=== PATIENT | female | born 1990 | race Caucasian/White ===

== ENCOUNTER 2016-11-09 13:31 | Emergency (ER) | payer MEDICAID, OTHER ==
[2016-11-09 13:42] VITALS: BP 140/88; TEMP 98; O2SAT 99
[2016-11-09] MEDS ORDERED: predniSONE 20 MG TAB PO ONE (13:45)
[2016-11-09] MEDS ORDERED: KETOROLAC TROMETHAMINE INJ 30 MG/ML VIAL IM ONE (13:46)
[2016-11-09] MEDS ORDERED: HYDROcodone 5MG/APAP 325MG 1 EA TAB PO ONE (13:46)
--- NOTE | 2016-11-09 14:43 | ED.PDOC ---
History of Present Illness - General Chief Complaint: Headache Stated Complaint: headache for two days, nausea Time Seen by Provider: 11/09/16 13:33 Source: patient Exam Limitations: no limitations - History of Present Illness Initial Comments: the patient is a 26-year-old female presenting to the emergency room secondary to headache that she's had for 24-48 hours. Headache is generalized and nonfocal. The onset was gradual. No syncope or near syncope. She has had a mild runny nose and a mild sore throat. Mild increased pressure in her ears. No chest pain or cough. No syncope. No rash. No nuchal rigidity. She does have kids that and had a URI recently. Timing/Duration: 24 hours Severity: moderate Improving Factors: nothing Worsening Factors: nothing Associated Symptoms: malaise Allergies/Adverse Reactions: Allergies Loratadine Allergy (Verified 11/09/16 13:38) Anaphylaxis Home Medications: Ambulatory Orders Levonorgestrel (Iud) [Mirena] 20 mcg IU DAILY 12/21/15 Review of Systems - Review of Systems Constitutional: States: malaise EENTM: States: nose congestion, throat pain Respiratory: States: no symptoms reported Cardiology: States: no symptoms reported Gastrointestinal/Abdominal: States: no symptoms reported Genitourinary: States: no symptoms reported Musculoskeletal: States: no symptoms reported Skin: States: no symptoms reported Neurological: States: headache Endocrine: States: no symptoms reported All other Systems: No Change from Baseline Past Medical History (General) - Patient Medical History Hx Seizures: No Hx Stroke: No Hx Dementia: No Hx Asthma: Yes Hx of COPD: No Hx Cardiac Disorders: No Hx Congestive Heart Failure: No Hx Pacemaker: No Hx Hypertension: No Hx Thyroid Disease: No Hx Diabetes: No Hx Gastroesophageal Reflux: No Hx Renal Disease: No Hx Cancer: No Hx of HIV: No Hx Hepatitis C: No Hx MRSA: No Surgical History: no surgical history - Vaccination History Hx Tetanus, Diphtheria Vaccination: No Hx Influenza Vaccination: No Hx Pneumococcal Vaccination: No Immunizations Up to Date: No - Social History Hx Tobacco Use: No Hx Chewing Tobacco Use: No Hx Alcohol Use: No Hx Substance Use: No Hx Substance Use Treatment: No Hx Depression: No Feels Threatened In Home Enviroment: No Feels Threatened In a Relationship: No Hx Physical Abuse: No Hx Emotional Abuse: No Hx Suspected Abuse: No - Female History Hx Last Menstrual Period: 09/11/14 Patient : No Expected Date of Delivery:: 06/04/15 Family Medical History - Family History Mother Family History: No Known Living Status: Still Living Hx Family Cancer: Yes - skin cancer Paternal Living Status: Still Living Hx Family Hypertension: Yes Hx Family Stroke: Yes - at 17 y/o Hx Family;Other: Pt S.O. has hx of stroke and HTN. Mother Maternal Living Status: Still Living Hx Family Cancer: Yes - Pt states hx. of skin cancer Physical Exam - Physical Exam General Appearance: Alert, Comfortable, No apparent distress Eye Exam: bilateral normal Ears, Nose, Throat: nasal congestion - nares are pale and boggy with clear rhinorrhea, pharyngeal erythema - mild, other - tympanic membranes show increased pressure but no significant erythema Neck: non-tender, full range of motion, supple Respiratory: chest non-tender, lungs clear, normal breath sounds, no respiratory distress, no accessory muscle use Cardiovascular/Chest: normal peripheral pulses, regular rate, rhythm, no edema Peripheral Pulses: radial,right: 2+, radial,left: 2+, dorsalis pedis,right: 2+, dorsalis pedis,left: 2+ Gastrointestinal/Abdominal: soft Back Exam: normal inspection Extremity: normal range of motion, non-tender, normal inspection, no pedal edema , normal capillary refill Neurologic: alert, normal mood/affect, oriented x 3 Skin Exam: normal color Comments: Vital Signs - 24 hr 11/09/16 13:39 Temperature 98 F Pulse Rate [ 72 Left Radial] Respiratory 18 Rate Blood Pressure 140/88 [Left Arm] O2 Sat by Pulse 99 Oximetry Progress - Progress Progress: 11/09/16 14:43 rapid strep and rapid flu were negative. The patient is a 26-year-old female presenting with a headache that appears to be due to a viral URI in combination with what is probably a chronic allergic rhinitis. The patient received a dose of hydrocodone and Toradol here with some relief. She needs to increase her fluid intake. I would recommend that she take 2 Aleve twice daily for the next 3 days with food to help reduce inflammation. She additionally did receive 1 dose of oral prednisone. I would also recommend she pickle sorter Flonase nasal spray [id number] and spray 1 spray per nostril twice daily for the next 2 weeks. This should help both with the allergic rhinitis component and the acute upper respiratory viral infection. The patient can resume work tomorrow. ER warnings were given. - EKG/XRAY/CT CT Ordered: No CT Interpretation Call Back: No Departure - Departure Clinical Impression: Tension type headache Qualifiers: Headache chronicity pattern: acute headache Allergic rhinitis Qualifiers: Allergic rhinitis type: unspecified Qualifier Code: (J30.9) Allergic rhinitis, unspecified Disposition: Discharge to Home or Self Care Condition: Fair Departure Forms: ED Discharge - Pt. Copy, Patient Portal Self Enrollment Instructions: DI for Allergic Rhinitis Diet: regular diet Activity: increase activity as tolerated Referrals: [Primary Care Provider] - 1-2 Weeks Home Medications: Ambulatory Orders Levonorgestrel (Iud) [Mirena] 20 mcg IU DAILY 12/21/15 Additional Instructions: rapid strep and rapid flu were negative. The patient is a 26-year-old female presenting with a headache that appears to be due to a viral URI in combination with what is probably a chronic allergic rhinitis. The patient received a dose of hydrocodone and Toradol here with some relief. She needs to increase her fluid intake. I would recommend that she take 2 Aleve twice daily for the next 3 days with food to help reduce inflammation. She additionally did receive 1 dose of oral prednisone. I would also recommend she pickle sorter Flonase nasal spray [id number] and spray 1 spray per nostril twice daily for the next 2 weeks. This should help both with the allergic rhinitis component and the acute upper respiratory viral infection. The patient can resume work tomorrow. ER warnings were given.
== END 2016-11-09 14:55 | disposition home or self-care (01) ==
LOC: ER 13:31
DX: G44.209 Tension-type headache, unspecified, not intractable (principal); J30.9 Allergic rhinitis, unspecified; J45.909 Unspecified asthma, uncomplicated; Z88.8 Allergy status to other drugs, medicaments and biological substances
CPT/HCPCS: 87070; 87502; 87880; J1885; J7512

== ENCOUNTER 2016-12-18 11:48 | Emergency (ER) | payer MEDICAID, OTHER ==
[2016-12-18 11:58] VITALS: TEMP 98
--- NOTE | 2016-12-18 13:02 | RAD ---
Frontal, lateral, and oblique views of the right hand. Indication: mid hand pain, blunt trauma yesterday Comparison: January 23, 2016. Impression: No acute fracture, malalignment, or advanced osteoarthritis. If there is persistent anatomic snuffbox tenderness, repeat wrist imaging to include a scaphoid view is recommended in one week to evaluate for occult scaphoid fracture. Soft tissues are intact without radiopaque foreign body. Electronically signed by: Mejia Hannah MD 12/18/2016 1:01 PM CDT
[2016-12-18 13:09] VITALS: BP 128/74
--- NOTE | 2016-12-18 13:11 | ED.PDOC ---
History of Present Illness - General Chief Complaint: Upper Extremity Injury Stated Complaint: Right hand injury Time Seen by Provider: 12/18/16 12:05 Source: patient Exam Limitations: no limitations - History of Present Illness Initial Comments: the patient is a 26-year-old female presenting to emergency room secondary to right hand pain. The patient shut her right hand in a freezer door yesterday and has hurt. Pain is in the midsection of the hand. No gross deformity is seen. No crepitus is felt. She is neurovascularly intact. Tendon function appears preserved. She has diffuse discomfort to palpation on both sides of the mid hand. Timing/Duration: 24 hours Severity: moderate Improving Factors: immobilization Worsening Factors: movement Associated Symptoms: denies symptoms Allergies/Adverse Reactions: Allergies Loratadine Allergy (Verified 11/09/16 13:38) Anaphylaxis Home Medications: Ambulatory Orders Levonorgestrel (Iud) [Mirena] 20 mcg IU DAILY 12/21/15 Review of Systems - Review of Systems Constitutional: States: no symptoms reported EENTM: States: no symptoms reported Respiratory: States: no symptoms reported Cardiology: States: no symptoms reported Gastrointestinal/Abdominal: States: no symptoms reported Genitourinary: States: no symptoms reported Musculoskeletal: States: see HPI Skin: States: no symptoms reported Neurological: States: no symptoms reported Endocrine: States: no symptoms reported All other Systems: No Change from Baseline Past Medical History (General) - Patient Medical History Hx Seizures: No Hx Stroke: No Hx Dementia: No Hx Asthma: Yes Hx of COPD: No Hx Cardiac Disorders: No Hx Congestive Heart Failure: No Hx Pacemaker: No Hx Hypertension: No Hx Thyroid Disease: No Hx Diabetes: No Hx Gastroesophageal Reflux: No Hx Renal Disease: No Hx Cancer: No Hx of HIV: No Hx Hepatitis C: No Hx MRSA: No Surgical History: no surgical history - Vaccination History Hx Tetanus, Diphtheria Vaccination: No Hx Influenza Vaccination: No Hx Pneumococcal Vaccination: No - Social History Hx Tobacco Use: No Hx Chewing Tobacco Use: No Hx Alcohol Use: No Hx Substance Use: No Hx Substance Use Treatment: No Hx Depression: No Hx Physical Abuse: No Hx Emotional Abuse: No Hx Suspected Abuse: No - Female History Patient is a Female of Child Bearing Age (10 -59 yrs old): Yes - HAS MERENA Hx Last Menstrual Period: 09/11/14 Patient : No Expected Date of Delivery:: 06/04/15 Family Medical History - Family History Mother Family History: No Known Living Status: Still Living Hx Family Cancer: Yes - skin cancer Paternal Living Status: Still Living Hx Family Hypertension: Yes Hx Family Stroke: Yes - at 17 y/o Hx Family;Other: Pt S.O. has hx of stroke and HTN. Mother Maternal Living Status: Still Living Hx Family Cancer: Yes - Pt states hx. 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 X-ray showed no evidence of fracture or dislocation. If the patient continues to have pain after a period of one week then a repeat x-ray can be performed with an additional scaphoid view, to help rule out any occult dislocation or fracture. ER warnings were given. Motrin Tylenol can be use for discomfort. Departure - Departure Clinical Impression: Hand sprain and strain Disposition: Discharge to Home or Self Care Condition: Good Departure Forms: ED Discharge - Pt. Copy, Patient Portal Self Enrollment Instructions: DI for Hand Injury Diet: regular diet Activity: increase activity as tolerated Referrals: Cynthia Florez FNP [Primary Care Provider] - 1-2 Weeks Home Medications: Ambulatory Orders Levonorgestrel (Iud) [Mirena] 20 mcg IU DAILY 12/21/15 Additional Instructions: the patient is a 26-year-old female presenting to the emergency room secondary to mid right hand pain one day after blunt trauma. X-ray showed no evidence of fracture or dislocation. If the patient continues to have pain after a period of one week then a repeat x-ray can be performed with an additional scaphoid view, to help rule out any occult dislocation or fracture. ER warnings were given. Motrin Tylenol can be use for discomfort.
[2016-12-18 19:33] VITALS: O2SAT 98
== END 2016-12-18 13:30 | disposition home or self-care (01) ==
LOC: ER 11:48
DX: S63.91XA Sprain of unspecified part of right wrist and hand, initial encounter (principal); J45.909 Unspecified asthma, uncomplicated; Z88.8 Allergy status to other drugs, medicaments and biological substances; W23.0XXA Caught, crushed, jammed, or pinched between moving objects, initial encounter; Y92.9 Unspecified place or not applicable

== ENCOUNTER 2017-01-16 16:57 | Emergency (ER) | payer OTHER ==
[2017-01-16 17:08] VITALS: BP 127/86; TEMP 98; O2SAT 99
--- NOTE | 2017-01-16 17:11 | ED.PDOC ---
History of Present Illness - General Chief Complaint: Eye Problems Stated Complaint: left eye lid swelling x 1 day Time Seen by Provider: 01/16/17 17:01 Source: patient Exam Limitations: no limitations - History of Present Illness Initial Comments: The patient is a 26-year-old female presenting with a hordeolum to the left upper eyelid present for approximately 24 hours. No impingement of eye movement. No evidence of any posterior abscess formation. No evidence of sepsis. She does wear contacts. Timing/Duration: 24 hours Severity: mild Improving Factors: nothing Worsening Factors: nothing Associated Symptoms: denies symptoms Allergies/Adverse Reactions: Allergies Loratadine Allergy (Verified 01/16/17 17:05) Anaphylaxis Home Medications: Ambulatory Orders Levonorgestrel (Iud) [Mirena] 20 mcg IU DAILY 12/21/15 Erythromycin Ophth Oint 1 applic OPHTH QID 7 Days 01/16/17 Sulfa/Trimeth 800/160 (Ds) Tab [Bactrim DS Tab] 1 ea PO BID #10 tab 01/16/17 Review of Systems - Review of Systems Constitutional: States: no symptoms reported EENTM: States: see HPI Respiratory: States: no symptoms reported Cardiology: States: no symptoms reported Gastrointestinal/Abdominal: States: no symptoms reported Genitourinary: States: no symptoms reported Musculoskeletal: States: no symptoms reported Skin: States: no symptoms reported Neurological: States: no symptoms reported Endocrine: States: no symptoms reported All other Systems: No Change from Baseline Past Medical History (General) - Patient Medical History Hx Seizures: No Hx Stroke: No Hx Dementia: No Hx Asthma: Yes Hx of COPD: No Hx Cardiac Disorders: No Hx Congestive Heart Failure: No Hx Pacemaker: No Hx Hypertension: No Hx Thyroid Disease: No Hx Diabetes: No Hx Gastroesophageal Reflux: No Hx Renal Disease: No Hx Cancer: No Hx of HIV: No Hx Hepatitis C: No Hx MRSA: No - Vaccination History Hx Tetanus, Diphtheria Vaccination: No Hx Influenza Vaccination: No Hx Pneumococcal Vaccination: No - Social History Hx Tobacco Use: No Hx Chewing Tobacco Use: No Hx Alcohol Use: No Hx Substance Use: No Hx Substance Use Treatment: No Hx Depression: No Hx Physical Abuse: No Hx Emotional Abuse: No Hx Suspected Abuse: No - Female History Hx Last Menstrual Period: 09/11/14 Patient : No Expected Date of Delivery:: 10/27/15 Family Medical History - Family History Mother Family History: No Known Living Status: Still Living Hx Family Cancer: Yes - skin cancer Paternal Living Status: Still Living Hx Family Hypertension: Yes Hx Family Stroke: Yes - at 17 y/o Hx Family;Other: Pt S.O. has hx of stroke and HTN. Mother Maternal Living Status: Still Living Hx Family Cancer: Yes - Pt states hx. 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 she needs to discontinue contact use for the next 1-2 weeks. Warm compresses can be applied to help resolve the issue. The patient will be written for erythromycin ointment and Bactrim tablets. ER warnings were given for any worsening. Departure - Departure Clinical Impression: Stye Qualifiers: Laterality: left Qualified Code(s): H00.016 - Hordeolum externum left eye, unspecified eyelid Disposition: Discharge to Home or Self Care Condition: Fair Departure Forms: ED Discharge - Pt. Copy, Patient Portal Self Enrollment Instructions: DI for Hordeolum Diet: regular diet Activity: increase activity as tolerated Referrals: Cynthia Florez FNP [Primary Care Provider] - 1-2 Weeks Prescriptions: Erythromycin Ophth Oint 1 applic OPHTH QID 7 Days Sulfa/Trimeth 800/160 (Ds) Tab [Bactrim DS Tab] 1 ea PO BID #10 tab Home Medications: Ambulatory Orders Levonorgestrel (Iud) [Mirena] 20 mcg IU DAILY 12/21/15 Erythromycin Ophth Oint 1 applic OPHTH QID 7 Days 01/16/17 Sulfa/Trimeth 800/160 (Ds) Tab [Bactrim DS Tab] 1 ea PO BID #10 tab 01/16/17 Additional Instructions: the patient is a 26-year-old female presenting to the emergency room due to hordeolum formation to the upper left eyelid. she needs to discontinue contact use for the next 1-2 weeks. Warm compresses can be applied to help resolve the issue. The patient will be written for erythromycin ointment and Bactrim tablets. ER warnings were given for any worsening.
== END 2017-01-16 17:20 | disposition home or self-care (01) ==
LOC: ER 16:57
DX: H00.016 Hordeolum externum left eye, unspecified eyelid (principal); J45.909 Unspecified asthma, uncomplicated; Z88.8 Allergy status to other drugs, medicaments and biological substances

== ENCOUNTER 2017-01-17 22:37 | Emergency (ER) | payer OTHER ==
[2017-01-17] MEDS ORDERED: ACYCLOVIR 200 MG CAP PO SCH (23:45)
--- NOTE | 2017-01-17 23:49 | ED.PDOC ---
History of Present Illness - General Stated Complaint: eye swelling Time Seen by Provider: 01/17/17 23:36 Source: patient Exam Limitations: no limitations - History of Present Illness Initial Comments: Rosamaria Lane 26 y/o female stated she was seen last night here at [facility] ER for left eye problem diagnosed with stye was given oral and antibiotic eye oi.ntment but tonight stated swelling had worsen on left eyelid Denies eye trauma,no matting Timing/Duration: gradual, other - 2 days ago EENT Location: eye (L) Prearrival Treatment: prescription meds Improving Factors: nothing Worsening Factors: nothing Associated Symptoms: denies symptoms Allergies/Adverse Reactions: Allergies Loratadine Allergy (Verified 01/18/17 00:02) Anaphylaxis Home Medications: Ambulatory Orders Levonorgestrel (Iud) [Mirena] 20 mcg IU DAILY 12/21/15 Erythromycin Ophth Oint 1 applic OPHTH QID 7 Days 01/16/17 Sulfa/Trimeth 800/160 (Ds) Tab [Bactrim DS Tab] 1 ea PO BID #10 tab 01/16/17 Review of Systems - Review of Systems Constitutional: States: no symptoms reported EENTM: States: see HPI Respiratory: States: no symptoms reported Cardiology: States: no symptoms reported Gastrointestinal/Abdominal: States: no symptoms reported Genitourinary: States: no symptoms reported Musculoskeletal: States: no symptoms reported Skin: States: no symptoms reported Neurological: States: no symptoms reported Endocrine: States: no symptoms reported Hematologic/Lymphatic: States: no symptoms reported Past Medical History (General) - Patient Medical History Hx Seizures: No Hx Stroke: No Hx Dementia: No Hx Asthma: Yes Hx of COPD: No Hx Cardiac Disorders: No Hx Congestive Heart Failure: No Hx Pacemaker: No Hx Hypertension: No Hx Thyroid Disease: No Hx Diabetes: No Hx Gastroesophageal Reflux: No Hx Renal Disease: No Hx Cancer: No Hx of HIV: No Hx Hepatitis C: No Hx MRSA: No Surgical History: no surgical history - Vaccination History Hx Tetanus, Diphtheria Vaccination: No Hx Influenza Vaccination: No Hx Pneumococcal Vaccination: No - Social History Hx Tobacco Use: No Hx Chewing Tobacco Use: No Hx Alcohol Use: No Hx Substance Use: No Hx Substance Use Treatment: No Hx Depression: No Hx Physical Abuse: No Hx Emotional Abuse: No Hx Suspected Abuse: No - Activities of Daily Living Patient Lives Alone: No - family - Female History Patient is a Female of Child Bearing Age (10 -59 yrs old): Yes Hx Last Menstrual Period: 09/11/14 Patient : No - patient on iud-mirena Family Medical History - Family History Mother Living Status: Still Living Hx Family Cancer: Yes - skin cancer Paternal Living Status: Still Living Hx Family Hypertension: Yes Hx Family Stroke: Yes - at 17 y/o Hx Family;Other: Pt S.O. has hx of stroke and HTN. Mother Maternal Living Status: Still Living Hx Family Cancer: Yes - Pt states hx. of skin cancer Physical Exam - Physical Exam General Appearance: Alert, Comfortable, No apparent distress Eye Exam: left other - swelling upper lid , bilateral normal Ear Exam: bilateral ear: auricle normal, canal normal, TM normal Nasal Exam: normal inspection Throat Exam: normal mouth inspection, pharynx normal Neck: non-tender, full range of motion, supple Cardiovascular/Respiratory: regular rate, rhythm, no M/R/G, normal peripheral pulses Abdominal Exam: non-tender, no organomegaly Neurologic: no motor/sensory deficits, alert, oriented x 3 Skin Exam: normal color, warm/dry Departure - Departure Clinical Impression: Blepharitis of eyelid of left eye Time of Disposition: 23:53 Disposition: Discharge to Home or Self Care Instructions: DI for Blepharitis, Blepharitis, Blepharitis (Alternative Therapy ) Referrals: Cynthia Florez FNP [Primary Care Provider] - 1-2 Weeks Prescriptions: Acyclovir [Zovirax] 800 mg PO TID #20 tab Cephalexin 1,000 mg PO BID #20 cap Prednisone 10 mg PO BID #20 deonte Home Medications: Ambulatory Orders Levonorgestrel (Iud) [Mirena] 20 mcg IU DAILY 12/21/15 Erythromycin Ophth Oint 1 applic OPHTH QID 7 Days 01/16/17 Sulfa/Trimeth 800/160 (Ds) Tab [Bactrim DS Tab] 1 ea PO BID #10 tab 01/16/17 Additional Instructions: RETURN TO EMERGENCY ROOM IF LEFT EYE SWELLING WORSEN NEEDED;DISCONTINUE EYE OINTMENT AND BACTRIM PO
[2017-01-17] MEDS ORDERED: CEPHALEXIN MONOHYDRATE 500 MG CAP PO ONE (23:55)
[2017-01-17] MEDS ORDERED: DEXAMETHASONE INJ 4 MG/ML VIAL IM ONE (23:56)
[2017-01-18 00:01] VITALS: BP 130/89; TEMP 99.1; O2SAT 100
[2017-01-18] MEDS ORDERED: CEPHALEXIN MONOHYDRATE 250 MG CAP PO ONE (00:05)
== END 2017-01-18 00:39 | disposition home or self-care (01) ==
LOC: ER 22:37
DX: H01.004 Unspecified blepharitis left upper eyelid (principal); J45.909 Unspecified asthma, uncomplicated; Z88.8 Allergy status to other drugs, medicaments and biological substances; Z79.899 Other long term (current) drug therapy

== ENCOUNTER 2017-03-01 12:43 | Emergency (ER) | payer OTHER ==
[2017-03-01 12:55] VITALS: TEMP 99; O2SAT 99
--- NOTE | 2017-03-01 13:06 | ED.PDOC ---
History of Present Illness - General Chief Complaint: Neck Injury/Pain Stated Complaint: neck pain, headache and nausea Time Seen by Provider: 03/01/17 12:58 Source: patient, RN notes reviewed, Vital Signs reviewed Exam Limitations: no limitations - History of Present Illness Initial Comments: Patient comes in with c/o LIVE X 2days that is now causing some neck pain. The LIVE is in the back of her head and across her forehead. pain is 8/10. She has taken OTC medications and Flexeril which she has for when these LIVE's occur. Usually resolve with muscle relaxer but this time it is not working. Timing/Duration: constant - 2 days Severity: severe Improving Factors: nothing Worsening Factors: nothing Associated Symptoms: headaches, nausea/vomiting Allergies/Adverse Reactions: Allergies Loratadine Allergy (Intermediate, Verified 03/01/17 12:50) Anaphylaxis Home Medications: Ambulatory Orders Acetamin W/Cod #3 Tab [Tylenol w/CODEINE #3] 1 ea PO Q6HR PRN #12 tab 03/01/17 Cyclobenzaprine HCl [Flexeril] 10 mg PO BEDTIME 03/01/17 Hydroxyzine HCl 25 mg PO BEDTIME 03/01/17 Review of Systems - Review of Systems Constitutional: States: no symptoms reported EENTM: States: no symptoms reported. Denies: blurred vision, double vision Respiratory: States: no symptoms reported Cardiology: States: no symptoms reported Gastrointestinal/Abdominal: States: nausea. Denies: abdominal pain, vomiting Musculoskeletal: States: see HPI, neck pain Skin: States: no symptoms reported Neurological: States: headache. Denies: numbness, paresthesia, tingling, weakness All other Systems: No Change from Baseline Past Medical History (General) - Patient Medical History Hx Seizures: No Hx Stroke: No Hx Dementia: No Hx Asthma: No Hx of COPD: No Hx Cardiac Disorders: No Hx Congestive Heart Failure: No Hx Pacemaker: No Hx Hypertension: No Hx Thyroid Disease: No Hx Diabetes: No Hx Gastroesophageal Reflux: No Hx Renal Disease: No Hx Cancer: No Hx of HIV: No Hx Hepatitis C: No Hx MRSA: No - Vaccination History Hx Tetanus, Diphtheria Vaccination: No Hx Influenza Vaccination: No Hx Pneumococcal Vaccination: No Immunizations Up to Date: No - Social History Hx Tobacco Use: No Hx Chewing Tobacco Use: No Hx Alcohol Use: No Hx Substance Use: No Hx Substance Use Treatment: No Hx Depression: No Feels Threatened In Home Enviroment: No Feels Threatened In a Relationship: No Hx Physical Abuse: No Hx Emotional Abuse: No Hx Suspected Abuse: No - Female History Patient is a Female of Child Bearing Age (10 -59 yrs old): No Hx Last Menstrual Period: 09/11/14 Patient : No Expected Date of Delivery:: 06/04/15 Family Medical History - Family History Mother Family History: No Known Living Status: Still Living Hx Family Cancer: Yes - skin cancer Paternal Living Status: Still Living Hx Family Hypertension: Yes Hx Family Stroke: Yes - at 16 y/o Hx Family;Other: Pt S.O. has hx of stroke and HTN. Mother Maternal Family History: No Known Living Status: Still Living Hx Family Cancer: Yes - Pt states hx. of skin cancer Physical Exam - Physical Exam General Appearance: Alert, No apparent distress, Well Developed, Well Groomed, Well Hydrated, Well Nourished Eye Exam: bilateral normal Ears, Nose, Throat: hearing grossly normal, normal ENT inspection, normal pharynx Neck: full range of motion, supple, tender lateral - with muscle spasm on R Respiratory: lungs clear, normal breath sounds, no respiratory distress, no accessory muscle use Cardiovascular/Chest: regular rate, rhythm, no gallop, no JVD, no murmur Extremity: normal range of motion, normal inspection Neurologic: pediatric psychologist II-XII nml as tested, no motor/sensory deficits, alert, normal mood/affect, oriented x 3 Skin Exam: normal color, warm/dry Comments: Vital Signs 03/01/17 12:51 Temperature 99 F Pulse Rate [ 88 Left Radial] Respiratory 18 Rate Blood Pressure 118/76 [Left Arm] O2 Sat by Pulse 99 Oximetry Progress - Progress Progress: 03/01/17 13:54 Patient reports LIVE is completely gone after Tylenol #3. She now wonders if she has a concussion. She reports that 2 days ago she bent over to tie her shoes and when she stood up she struck the back of her head on a wooden shelf. Advised it is possible but also could have injured her neck and caused her LIVE. Recommended continuing Flexeril at bedtime and to apply heat to neck. Departure - Departure Clinical Impression: Tension type headache Qualifiers: Headache chronicity pattern: acute headache Intractability: not intractable Qualified Code(s): G44.209 - Tension-type headache, unspecified, not intractable Cervical muscle strain Qualifiers: Encounter type: initial encounter Qualified Code(s): S16.1XXA - Strain of muscle, fascia and tendon at neck level, initial encounter Time of Disposition: 13:58 Disposition: Discharge to Home or Self Care Condition: Good Departure Forms: ED Discharge - Pt. Copy, Patient Portal Self Enrollment Instructions: Tension Headache, DI for Cervical Muscle Strain Diet: resume usual diet Activity: increase activity as tolerated Referrals: Cynthia Florez FNP [Primary Care Provider] - 1-2 Weeks Prescriptions: Acetamin W/Cod #3 Tab [Tylenol w/CODEINE #3] 1 ea PO Q6HR PRN #12 tab PRN Reason: Headache/Migraine Pain Home Medications: Ambulatory Orders Acetamin W/Cod #3 Tab [Tylenol w/CODEINE #3] 1 ea PO Q6HR PRN #12 tab 03/01/17 Cyclobenzaprine HCl [Flexeril] 10 mg PO BEDTIME 03/01/17 Hydroxyzine HCl 25 mg PO BEDTIME 03/01/17
[2017-03-01] MEDS ORDERED: ACETAMINOPHEN W/COD #3 TAB 1 EA TAB PO ONE (13:08)
[2017-03-01 14:32] VITALS: BP 130/85
== END 2017-03-01 14:32 | disposition home or self-care (01) ==
LOC: ER 12:43
DX: S16.1XXA Strain of muscle, fascia and tendon at neck level, initial encounter (principal); G44.209 Tension-type headache, unspecified, not intractable; Z88.8 Allergy status to other drugs, medicaments and biological substances; W22.8XXA Striking against or struck by other objects, initial encounter

== ENCOUNTER 2017-05-28 11:05 | Emergency (ER) | payer OTHER ==
[2017-05-28 11:23] VITALS: BP 130/78; O2SAT 97
--- NOTE | 2017-05-28 11:46 | ED.PDOC ---
History of Present Illness - General Chief Complaint: ENT Problem Stated Complaint: I just don't feel good Time Seen by Provider: 05/28/17 11:23 Source: patient, RN notes reviewed, Vital Signs reviewed Exam Limitations: no limitations - History of Present Illness Initial Comments: Patient comes in with c/o of body aches, LIVE, red & watery R eye, sore throat and chills. Initially thought it was allergies so she has been taking some Zyrtec w/o improvement. Timing/Duration: gradual, yesterday Severity: moderate EENT Location: eye (R), throat Prearrival Treatment: over the counter meds Improving Factors: nothing Worsening Factors: nothing Associated Symptoms: cough, malaise, sore throat Allergies/Adverse Reactions: Allergies Loratadine Allergy (Intermediate, Verified 03/01/17 12:50) Anaphylaxis Home Medications: Ambulatory Orders Acetamin W/Cod #3 Tab [Tylenol w/CODEINE #3] 1 ea PO Q6HR PRN #12 tab 03/01/17 Cyclobenzaprine HCl [Flexeril] 10 mg PO BEDTIME 03/01/17 Hydroxyzine HCl 25 mg PO BEDTIME 03/01/17 Amoxicillin [Amoxil] 500 mg PO TID #21 cap 05/28/17 Ofloxacin (Ophth) [Ocuflox] 0.3 ml RIGHT_EYE QID #5 ml 05/28/17 Review of Systems - Review of Systems Constitutional: States: chills, malaise. Denies: fever EENTM: States: see HPI, tearing, throat pain Respiratory: States: cough. Denies: short of breath Cardiology: States: no symptoms reported Gastrointestinal/Abdominal: States: no symptoms reported Musculoskeletal: States: muscle pain - bodyaches Skin: States: no symptoms reported Neurological: States: headache All other Systems: No Change from Baseline Past Medical History (General) - Patient Medical History Hx Seizures: No Hx Stroke: No Hx Dementia: No Hx Asthma: Yes Hx of COPD: No Hx Cardiac Disorders: No Hx Congestive Heart Failure: No Hx Pacemaker: No Hx Hypertension: No Hx Thyroid Disease: No Hx Diabetes: No Hx Gastroesophageal Reflux: No Hx Renal Disease: No Hx Cancer: No Hx of HIV: No Hx Hepatitis C: No Hx MRSA: No Surgical History: no surgical history - Vaccination History Hx Tetanus, Diphtheria Vaccination: No Hx Influenza Vaccination: No Hx Pneumococcal Vaccination: No - Social History Hx Tobacco Use: No Hx Chewing Tobacco Use: No Hx Alcohol Use: No Hx Substance Use: No Hx Substance Use Treatment: No Hx Depression: No Hx Physical Abuse: No Hx Emotional Abuse: No Hx Suspected Abuse: No - Female History Hx Last Menstrual Period: 09/11/14 Patient : No Expected Date of Delivery:: 06/04/15 Family Medical History - Family History Mother Family History: No Known Living Status: Still Living Hx Family Cancer: Yes - skin cancer Paternal Living Status: Still Living Hx Family Hypertension: Yes Hx Family Stroke: Yes - at 16 y/o Hx Family;Other: Pt S.O. has hx of stroke and HTN. Mother Maternal Family History: No Known Living Status: Still Living Hx Family Cancer: Yes - Pt states hx. of skin cancer Physical Exam - Physical Exam General Appearance: Alert, No apparent distress, Ill Appearing, Well Developed, Well Groomed, Well Hydrated, Well Nourished Eye Exam: right other - Injected conjunctiva w/ tearing and mild eyelid erythema and swelling., left normal Ear Exam: bilateral ear: auricle normal, canal normal, TM normal Nasal Exam: normal inspection Throat Exam: normal mouth inspection, pharynx normal Neck: supple, lymphadenopathy (R) Cardiovascular/Respiratory: regular rate, rhythm, no M/R/G, normal breath sounds , no respiratory distress Neurologic: alert, normal mood/affect, oriented x 3 Skin Exam: normal color, warm/dry Comments: Vital Signs 05/28/17 11:12 Pulse Rate [ 80 left brachial] Respiratory 16 Rate Blood Pressure 130/78 [left brachial] O2 Sat by Pulse 97 Oximetry Progress - Results/Orders Results/Orders: Laboratory Tests 05/28/17 11:36 Group A Strep DNA Negative Departure - Departure Clinical Impression: Upper respiratory infection, acute Acute conjunctivitis, right eye Qualifiers: Acute conjunctivitis type: unspecified Qualified Code(s): H10.31 - Unspecified acute conjunctivitis, right eye Time of Disposition: 12:07 Disposition: Discharge to Home or Self Care Condition: Good Departure Forms: ED Discharge - Pt. Copy, Patient Portal Self Enrollment Instructions: DI for Viral Upper Respiratory Infection -- Adult, DI for Conjunctivitis Diet: resume usual diet Activity: increase activity as tolerated Referrals: Cynthia Florez NP [Primary Care Provider] - 1-2 Weeks Prescriptions: Amoxicillin [Amoxil] 500 mg PO TID #21 cap Ofloxacin (Ophth) [Ocuflox] 0.3 ml RIGHT_EYE QID #5 ml Home Medications: Ambulatory Orders Acetamin W/Cod #3 Tab [Tylenol w/CODEINE #3] 1 ea PO Q6HR PRN #12 tab 03/01/17 Cyclobenzaprine HCl [Flexeril] 10 mg PO BEDTIME 03/01/17 Hydroxyzine HCl 25 mg PO BEDTIME 03/01/17 Amoxicillin [Amoxil] 500 mg PO TID #21 cap 05/28/17 Ofloxacin (Ophth) [Ocuflox] 0.3 ml RIGHT_EYE QID #5 ml 05/28/17
== END 2017-05-28 12:17 | disposition home or self-care (01) ==
LOC: ER 11:05
DX: J06.9 Acute upper respiratory infection, unspecified (principal); H10.31 Unspecified acute conjunctivitis, right eye; Z79.899 Other long term (current) drug therapy; Z88.8 Allergy status to other drugs, medicaments and biological substances

== ENCOUNTER 2017-07-17 10:50 | Emergency (ER) | payer OTHER ==
--- NOTE | 2017-07-17 11:04 | ED.PDOC ---
History of Present Illness - General Chief Complaint: Skin/Abrasion/Tear Time Seen by Provider: 07/17/17 10:59 Source: RN notes reviewed, Vital Signs reviewed - History of Present Illness Initial Comments: 27 YEAR OLD COMPLAINTS OF PATCHY PAINFUL SKIN RASH OVER THE DORSUM OF THE RIGHT HAND SINCE THIS MORNING SHE HAS HISTORY OF ASTHMA BUT ECZEMA NO HAY FEVER SHE HAS NO ASSOCIATED ITCHING NO HISTORY OF INSECT BITE NO FEVER CHILLS NO ASSOCIATED ARM PAIN OR ENLARGED LYMPHNODES Timing/Duration: 4-6 hours Severity: mild Improving Factors: nothing Worsening Factors: nothing Associated Symptoms: denies symptoms Allergies/Adverse Reactions: Allergies Loratadine Allergy (Intermediate, Verified 07/17/17 11:03) Anaphylaxis Home Medications: Ambulatory Orders Methylprednisolone [Medrol Dose Wilian] 4 mg PO Q24HR #1 tab 07/17/17 Past Medical History (General) - Patient Medical History Hx Seizures: No Hx Stroke: No Hx Dementia: No Hx Asthma: Yes Hx of COPD: No Hx Cardiac Disorders: No Hx Congestive Heart Failure: No Hx Pacemaker: No Hx Hypertension: No Hx Thyroid Disease: No Hx Diabetes: No Hx Gastroesophageal Reflux: No Hx Renal Disease: No Hx Cancer: No Hx of HIV: No Hx Hepatitis C: No Hx MRSA: No - Vaccination History Hx Tetanus, Diphtheria Vaccination: No Hx Influenza Vaccination: No Hx Pneumococcal Vaccination: No - Social History Hx Tobacco Use: No Hx Chewing Tobacco Use: No Hx Alcohol Use: No Hx Substance Use: No Hx Substance Use Treatment: No Hx Depression: No Hx Physical Abuse: No Hx Emotional Abuse: No Hx Suspected Abuse: No - Female History Hx Last Menstrual Period: 09/11/14 Patient : No Expected Date of Delivery:: 06/04/15 Family Medical History - Family History Mother Family History: No Known Living Status: Still Living Hx Family Cancer: Yes - skin cancer Paternal Living Status: Still Living Hx Family Hypertension: Yes Hx Family Stroke: Yes - at 16 y/o Hx Family;Other: Pt S.O. has hx of stroke and HTN. Mother Maternal Family History: No Known Living Status: Still Living Hx Family Cancer: Yes - Pt states hx. of skin cancer Departure - Departure Clinical Impression: Contact dermatitis Qualifiers: Contact dermatitis type: irritant Time of Disposition: 11:13 Disposition: Discharge to Home or Self Care Condition: Good Departure Forms: ED Discharge - Pt. Copy, Patient Portal Self Enrollment Instructions: DI for Abrasion Diet: regular diet Activity: walking as tolerated Referrals: Cynthia Florez NP [Primary Care Provider] - 1-2 Weeks Prescriptions: Methylprednisolone [Medrol Dose Wilian] 4 mg PO Q24HR #1 tab Home Medications: Ambulatory Orders Methylprednisolone [Medrol Dose Wilian] 4 mg PO Q24HR #1 tab 07/17/17
[2017-07-17] MEDS ORDERED: DEXAMETHASONE INJ 10 MG/ML VIAL IM ONE (11:09)
[2017-07-17 11:16] VITALS: TEMP 97.7; O2SAT 100
[2017-07-17 11:30] VITALS: BP 135/74
== END 2017-07-17 11:35 | disposition home or self-care (01) ==
LOC: ER 10:50
DX: L24.9 Irritant contact dermatitis, unspecified cause (principal); J45.909 Unspecified asthma, uncomplicated; Z88.8 Allergy status to other drugs, medicaments and biological substances

== ENCOUNTER 2017-08-26 19:04 | Emergency (ER) | payer SELFPAY ==
[2017-08-26 19:41] VITALS: BP 112/80; O2SAT 100
--- NOTE | 2017-08-26 20:11 | ED.PDOC ---
History of Present Illness - General Chief Complaint: Respiratory Problem Stated Complaint: cough sore throat Time Seen by Provider: 08/26/17 19:22 Source: patient Exam Limitations: no limitations - History of Present Illness Initial Comments: the patient is a 27-year-old female presenting to the emergency room secondary to cough, sore throat and fever along with some body aches for the last 24 hours. No nausea vomiting or diarrhea. No altered mental status. No meningeal signs. No rash. Timing/Duration: 24 hours Severity: mild Improving Factors: nothing Worsening Factors: nothing Associated Symptoms: cough, fever/chills, malaise Allergies/Adverse Reactions: Allergies Loratadine Allergy (Intermediate, Verified 07/17/17 11:03) Anaphylaxis Home Medications: Ambulatory Orders Methylprednisolone [Medrol Dose Wilian] 4 mg PO Q24HR #1 tab 07/17/17 Review of Systems - Review of Systems Constitutional: States: fever, malaise EENTM: States: nose congestion, throat pain Respiratory: States: cough Cardiology: States: no symptoms reported Gastrointestinal/Abdominal: States: no symptoms reported Genitourinary: States: no symptoms reported Musculoskeletal: States: no symptoms reported Skin: States: no symptoms reported Neurological: States: no symptoms reported Endocrine: States: no symptoms reported All other Systems: No Change from Baseline Past Medical History (General) - Patient Medical History Hx Seizures: No Hx Stroke: No Hx Dementia: No Hx Asthma: Yes - as a child Hx of COPD: No Hx Cardiac Disorders: No Hx Congestive Heart Failure: No Hx Pacemaker: No Hx Hypertension: No Hx Thyroid Disease: No Hx Diabetes: No Hx Gastroesophageal Reflux: No Hx Renal Disease: No Hx Cancer: No Hx of HIV: No Hx Hepatitis C: No Hx MRSA: No Surgical History: no surgical history - Vaccination History Hx Tetanus, Diphtheria Vaccination: Yes Hx Influenza Vaccination: No Hx Pneumococcal Vaccination: No - Social History Hx Tobacco Use: No Hx Chewing Tobacco Use: No Hx Alcohol Use: No Hx Substance Use: No Hx Substance Use Treatment: No Hx Depression: No Hx Physical Abuse: No Hx Emotional Abuse: No Hx Suspected Abuse: No - Female History Patient is a Female of Child Bearing Age (10 -59 yrs old): No Hx Last Menstrual Period: 09/11/14 Patient : No Expected Date of Delivery:: 06/04/15 Family Medical History - Family History Mother Family History: No Known Living Status: Still Living Hx Family Cancer: Yes - skin cancer Paternal Living Status: Still Living Hx Family Hypertension: Yes Hx Family Stroke: Yes - at 16 y/o Hx Family;Other: Pt S.O. has hx of stroke and HTN. Mother Maternal Family History: No Known Living Status: Still Living Hx Family Cancer: Yes - Pt states hx. of skin cancer Physical Exam - Physical Exam General Appearance: Alert, Comfortable, No apparent distress Eye Exam: bilateral normal Ears, Nose, Throat: hearing grossly normal, nasal congestion, pharyngeal erythema Neck: full range of motion, supple Respiratory: lungs clear, normal breath sounds, no respiratory distress, no accessory muscle use Cardiovascular/Chest: normal peripheral pulses, regular rate, rhythm, no edema Peripheral Pulses: radial,right: 2+, radial,left: 2+, dorsalis pedis,right: 2+, dorsalis pedis,left: 2+ Gastrointestinal/Abdominal: non tender, soft Rectal Exam: deferred Back Exam: normal inspection Extremity: normal range of motion, non-tender, no pedal edema, normal capillary refill Neurologic: cotton factor II-XII nml as tested, alert, normal mood/affect, oriented x 3 Skin Exam: normal color Comments: Vital Signs - 24 hr 08/26/17 19:26 Temperature 98.8 F Pulse Rate [ 80 left] Respiratory 18 Rate Blood Pressure 112/80 [left] O2 Sat by Pulse 100 Oximetry Progress - Progress Progress: 08/26/17 20:09 the patient is a 27-year-old female presented to the emergency room with what appears to be a common cold. She tested negative for strep and flu here today. Motrin can be used every 8 hours for the next couple of days with food to help reduce symptoms. She should keep herself well hydrated. Chloraseptic may use for the sore throat as well. She should follow up with her primary care doctor early next week if failing to improve. She should return to the emergency room for any significant worsening. She is contagious at this time. Departure - Departure Clinical Impression: Common cold Disposition: Discharge to Home or Self Care Condition: Fair Departure Forms: ED Discharge - Pt. Copy, Patient Portal Self Enrollment Instructions: DI for Common Cold Diet: regular diet Activity: increase activity as tolerated Referrals: Cynthia Florez NP [Primary Care Provider] - 1-2 Weeks Home Medications: Ambulatory Orders Methylprednisolone [Medrol Dose Wilian] 4 mg PO Q24HR #1 tab 07/17/17 Additional Instructions: the patient is a 27-year-old female presented to the emergency room with what appears to be a common cold. She tested negative for strep and flu here today. Motrin can be used every 8 hours for the next couple of days with food to help reduce symptoms. She should keep herself well hydrated. Chloraseptic may use for the sore throat as well. She should follow up with her primary care doctor early next week if failing to improve. She should return to the emergency room for any significant worsening. She is contagious at this time.
[2017-08-26 20:30] VITALS: TEMP 98.6
== END 2017-08-26 20:20 | disposition home or self-care (01) ==
LOC: ER 19:04
DX: J00 Acute nasopharyngitis [common cold] (principal)

== ENCOUNTER 2017-09-15 11:18 | Emergency (ER) | payer SELFPAY | END 2017-09-15 12:38 | disposition left against medical advice (07) | LOC: ER 11:18 | DX: Z53.21 Procedure and treatment not carried out due to patient leaving prior to being seen by health care provider (principal) ==

== ENCOUNTER 2017-10-31 19:21 | Emergency (ER) | payer MEDICAID ==
--- NOTE | 2017-10-31 19:37 | ED.PDOC ---
History of Present Illness - General Chief Complaint: Problem Stated Complaint: low ab pain, urination frequency Time Seen by Provider: 10/31/17 19:36 Source: patient Exam Limitations: no limitations Additional Information: C/O LOWER ABDOMINAL PAIN, PRIMARILY LLQ PAIN. ONSET TODAY AND HAS GOTTEN PROGRESSIVELY WORSE. HAS HAD SOME INTERMITTENT PAIN DURING INTERCOURSE PRIOR TO TODAY BUT OCCURRED SPONTANEOUSLY TODAY. SHARP, NON RADIATING. - History of Present Illness Improving Factors: nothing Worsening Factors: other - INTERCOURSE Associated Symptoms: denies symptoms Allergies/Adverse Reactions: Allergies Loratadine Allergy (Intermediate, Verified 10/31/17 19:38) Anaphylaxis Aripiprazole [From Abilify] Allergy (Verified 10/31/17 19:38) Sulfamethoxazole w/Trimethoprim [From Bactrim] Allergy (Verified 10/31/17 19:38) Home Medications: Ambulatory Orders Naproxen [EC-Naprosyn] 500 mg PO BID #20 tab 10/31/17 Review of Systems - Review of Systems Constitutional: Denies: chills, fever EENTM: States: no symptoms reported Respiratory: States: no symptoms reported Cardiology: States: no symptoms reported Gastrointestinal/Abdominal: States: abdominal pain. Denies: nausea, vomiting Genitourinary: States: discharge, dysuria, frequency Musculoskeletal: States: no symptoms reported Skin: States: no symptoms reported Neurological: States: no symptoms reported Endocrine: States: no symptoms reported Hematologic/Lymphatic: States: no symptoms reported Past Medical History (General) - Patient Medical History Hx Seizures: No Hx Stroke: No Hx Dementia: No Hx Asthma: Yes - as a child Hx of COPD: No Hx Cardiac Disorders: No Hx Congestive Heart Failure: No Hx Pacemaker: No Hx Hypertension: No Hx Thyroid Disease: No Hx Diabetes: No Hx Gastroesophageal Reflux: No Hx Renal Disease: No Hx Cancer: No Hx of HIV: No Hx Hepatitis C: No Hx MRSA: No - Vaccination History Hx Tetanus, Diphtheria Vaccination: Yes Hx Influenza Vaccination: No Hx Pneumococcal Vaccination: No - Social History Hx Tobacco Use: No Hx Chewing Tobacco Use: No Hx Alcohol Use: No Hx Substance Use: No Hx Substance Use Treatment: No Hx Depression: No Hx Physical Abuse: No Hx Emotional Abuse: No Hx Suspected Abuse: No - Female History Hx Last Menstrual Period: 09/11/14 Patient : No Expected Date of Delivery:: 06/04/15 Family Medical History - Family History Mother Family History: No Known Living Status: Still Living Hx Family Cancer: Yes - skin cancer Paternal Living Status: Still Living Hx Family Hypertension: Yes Hx Family Stroke: Yes - at 17 y/o Hx Family;Other: Pt S.O. has hx of stroke and HTN. Mother Maternal Family History: No Known Living Status: Still Living Hx Family Cancer: Yes - Pt states hx. of skin cancer Physical Exam - Physical Exam General Appearance: Alert, No apparent distress Eye Exam: bilateral normal Ears, Nose, Throat: hearing grossly normal, normal ENT inspection Neck: supple, normal inspection Respiratory: lungs clear, normal breath sounds Cardiovascular/Chest: regular rate, rhythm, no murmur Gastrointestinal/Abdominal: normal bowel sounds, soft, no organomegaly, other - LLQ TTP, NO SUPRAPUBIC OR RLQ TTP, NO G/R Back Exam: normal inspection, no CVA tenderness, no vertebral tenderness Extremity: normal range of motion, normal inspection Neurologic: alert, normal mood/affect Skin Exam: normal color, warm/dry Lymphatic: no adenopathy Departure - Departure Clinical Impression: Pelvic pain ICD-10 Supporting Text: DDX: PID, OVARIAN ABSCESS, PELVIC ADHESIONS. Time of Disposition: 22:15 Disposition: Discharge to Home or Self Care Condition: Good Departure Forms: ED Discharge - Pt. Copy, Patient Portal Self Enrollment Instructions: DI for Pelvic Pain Referrals: Cynthia Florez NP [Primary Care Provider] - 1-2 Weeks Prescriptions: Naproxen [EC-Naprosyn] 500 mg PO BID #20 tab Home Medications: Ambulatory Orders Naproxen [EC-Naprosyn] 500 mg PO BID #20 tab 10/31/17
[2017-10-31 19:38] VITALS: TEMP 99.1; O2SAT 100
[2017-10-31] MEDS ORDERED: KETOROLAC TROMETHAMINE INJ 30 MG/ML VIAL IV ONE (20:55)
[2017-10-31] MEDS ORDERED: KETOROLAC TROMETHAMINE INJ 60 MG/2 ML VIAL IM ONE (21:04)
[2017-10-31] MEDS ORDERED: AZITHROMYCIN 250 MG TAB PO ONE (22:11)
[2017-10-31] MEDS ORDERED: LIDOCAINE 1% 10 ML VIAL INJ ONE (22:13)
[2017-10-31 22:35] VITALS: BP 127/82
== END 2017-10-31 22:37 | disposition home or self-care (01) ==
LOC: ER 19:21
DX: R10.2 Pelvic and perineal pain (principal)
CPT/HCPCS: 36415; 80048; 81001; 81025; 85025; 87210; 87491; 87591; J0696; J1885; Q0144

== ENCOUNTER 2017-12-15 21:58 | Emergency (ER) | payer MEDICAID ==
--- NOTE | 2017-12-15 22:34 | ED.PDOC ---
History of Present Illness - General Chief Complaint: General Stated Complaint: Headache, Sore Throat, Nausea Time Seen by Provider: 12/15/17 22:28 Source: patient Exam Limitations: no limitations - History of Present Illness Initial Comments: Nicolle Lane 27 y/o female stated that she had achy throat,dull headaches , body aches and lower abdominal pain for the last 2 days no nausea/vomiting or diarrhea.No ill contact,no fever or chills. Timing/Duration: other - see hpi Improving Factors: nothing Worsening Factors: nothing Associated Symptoms: headaches - dull, other - nasal congestion Allergies/Adverse Reactions: Allergies Loratadine Allergy (Intermediate, Verified 10/31/17 19:38) Anaphylaxis Aripiprazole [From Abilify] Allergy (Verified 10/31/17 19:38) Sulfamethoxazole w/Trimethoprim [From Bactrim] Allergy (Verified 10/31/17 19:38) Home Medications: Ambulatory Orders Nitrofurantoin Monohydrate Mac [Macrobid] 100 mg PO BID 10 Days #20 capsule 05/26 Review of Systems - Review of Systems Constitutional: States: no symptoms reported EENTM: States: nose congestion, throat pain Respiratory: States: no symptoms reported Cardiology: States: no symptoms reported Gastrointestinal/Abdominal: States: see HPI Musculoskeletal: States: see HPI All other Systems: Reviewed and Negative, No Change from Baseline Past Medical History (General) - Patient Medical History Hx Seizures: No Hx Stroke: No Hx Dementia: No Hx Asthma: No Hx of COPD: No Hx Cardiac Disorders: No Hx Congestive Heart Failure: No Hx Pacemaker: No Hx Hypertension: No Hx Thyroid Disease: No Hx Diabetes: No Hx Gastroesophageal Reflux: No Hx Renal Disease: No Hx Cancer: No Hx of HIV: No Hx Hepatitis C: No Hx MRSA: No Surgical History: no surgical history - Vaccination History Hx Tetanus, Diphtheria Vaccination: Yes Hx Influenza Vaccination: No Hx Pneumococcal Vaccination: Yes Immunizations Up to Date: Yes - Social History Hx Tobacco Use: No Hx Chewing Tobacco Use: No Hx Alcohol Use: No Hx Substance Use: No Hx Substance Use Treatment: No Hx Depression: No Feels Threatened In Home Enviroment: No Feels Threatened In a Relationship: No Hx Physical Abuse: No Hx Emotional Abuse: No Hx Suspected Abuse: No - Activities of Daily Living Hospice Agency (if applicable):: None - Female History Patient is a Female of Child Bearing Age (10 -59 yrs old): Yes Hx Last Menstrual Period: 12/07/17 Patient : No Family Medical History - Family History Mother Family History: No Known Living Status: Still Living Hx Family Cancer: Yes - skin cancer Paternal Living Status: Still Living Hx Family Asthma: No Hx Family Congestive Heart Failure: No Hx Family Hypertension: Yes Hx Family Stroke: Yes - at 17 y/o Hx Cardiac Disease: No Hx Family Diabetes: No Hx Family Cancer: No Hx Family;Other: Pt S.O. has hx of stroke and HTN. Mother Maternal Family History: No Known Living Status: Still Living Hx Family Asthma: No Hx Family Congestive Heart Failure: No Hx Family Hypertension: No Hx Family Stroke: No Hx Cardiac Disease: No Hx Family Diabetes: No Hx Family Cancer: Yes - Pt states hx. of skin cancer Physical Exam - Physical Exam General Appearance: Alert, Comfortable, No apparent distress Eye Exam: bilateral normal Ears, Nose, Throat: hearing grossly normal, nasal congestion, pharyngeal erythema Neck: non-tender, full range of motion, supple Respiratory: lungs clear, normal breath sounds, no respiratory distress Cardiovascular/Chest: normal peripheral pulses, regular rate, rhythm, no murmur Gastrointestinal/Abdominal: soft, no organomegaly, tenderness - lower abdomen no peritoneal signs Back Exam: no CVA tenderness, no vertebral tenderness Extremity: normal inspection, no pedal edema, no calf tenderness Progress - Progress Progress: 12/15/17 22:41 Vital Signs - 8 hr 12/15/17 22:00 Temperature 98.9 F Pulse Rate [ 88 Apical] Respiratory 18 Rate Blood Pressure 102/77 [Right Arm] O2 Sat by Pulse 98 Oximetry - Results/Orders Results/Orders: 12/15/17 22:00 URINE CULTURE W/COLONY COUNT Stat 12/15/17 22:34 BASIC METABOLIC PANEL Stat CBC (AUTOMATED) W/AUTO DIFF Stat HCG,QUALITATIVE URINE Stat 12/15/17 22:47 URINALYSIS Stat 12/16/17 00:40 STREP A SCREEN CULTURE Urgent Laboratory Results - last 24 hr 12/15/17 12/15/17 12/15/17 00:00 00:00 00:00 WBC 5.3 RBC 3.53 L Hgb 9.0 L Hct 27.4 L MCV 77.5 L MCH 25.4 L MCHC 32.7 L RDW 15.9 H Plt Count 205 MPV 9.2 Absolute Neuts (auto) 3.50 Absolute Lymphs (auto) 1.20 Absolute Monos (auto) 0.30 Absolute Eos (auto) 0.20 Absolute Basos (auto) 0.00 Neutrophils % 67.0 Lymphocytes % 23.5 Monocytes % 5.8 Eosinophils % 3.3 Basophils % 0.4 Sodium 142 Potassium 3.3 L Chloride 110 Carbon Dioxide 26 Anion Gap 9.3 L BUN 12 Creatinine 0.77 BUN/Creatinine Ratio 15.6 Random Glucose 118 H Serum Osmolality 284.0 Calcium 9.0 Total Bilirubin 0.4 AST 17 ALT 12 Alkaline Phosphatase 33 L Serum Total Protein 7.0 Albumin 3.6 Globulin 3.4 Albumin/Globulin Ratio 1.1 Urine Color Urine Appearance Urine pH Ur Specific [place] Urine Protein Urine Glucose (UA) Urine Ketones Urine Blood Urine Nitrite Urine Bilirubin Urine Urobilinogen Ur Leukocyte Esterase Urine RBC Urine WBC Ur Epithelial Cells Urine Bacteria Urine HCG, Qual Negative Urine Opiates Screen Urine Barbiturates Ur Phencyclidine Scrn U Amphetamin/Meth Scrn U Benzodiazepines Scrn U Cocaine Metab Screen U Cannabinoids Screen Group A Strep DNA 12/15/17 12/16/17 12/16/17 22:00 00:39 00:40 WBC RBC Hgb Hct MCV MCH MCHC RDW Plt Count MPV Absolute Neuts (auto) Absolute Lymphs (auto) Absolute Monos (auto) Absolute Eos (auto) Absolute Basos (auto) Neutrophils % Lymphocytes % Monocytes % Eosinophils % Basophils % Sodium Potassium Chloride Carbon Dioxide Anion Gap BUN Creatinine BUN/Creatinine Ratio Random Glucose Serum Osmolality Calcium Total Bilirubin AST ALT Alkaline Phosphatase Serum Total Protein Albumin Globulin Albumin/Globulin Ratio Urine Color Yellow Urine Appearance Cloudy Urine pH 6.0 Ur Specific [place] >= 1.030 Urine Protein Negative Urine Glucose (UA) Negative Urine Ketones Trace Urine Blood Negative Urine Nitrite Positive H Urine Bilirubin Negative Urine Urobilinogen 1.0 Ur Leukocyte Esterase Negative Urine RBC 0 Urine WBC 5-10 H Ur Epithelial Cells 0-1 Urine Bacteria 4+ H Urine HCG, Qual Urine Opiates Screen Negative Urine Barbiturates Negative Ur Phencyclidine Scrn Negative U Amphetamin/Meth Scrn Negative U Benzodiazepines Scrn Negative U Cocaine Metab Screen Negative U Cannabinoids Screen Negative Group A Strep DNA Negative Departure - Departure Clinical Impression: Malaise and fatigue UTI (urinary tract infection) Qualifiers: Urinary tract infection type: site unspecified Hematuria presence: without hematuria Qualified Code(s): N39.0 - Urinary tract infection, site not specified Anemia Qualifiers: Anemia type: iron deficiency Iron deficiency anemia type: unspecified iron deficiency Qualified Code(s): D50.9 - Iron deficiency anemia, unspecified Time of Disposition: 01:45 Disposition: Discharge to Home or Self Care Condition: Fair Departure Forms: ED Discharge - Pt. Copy, Patient Portal Self Enrollment Instructions: DI for Iron Deficiency Anemia-Adult, Iron-Deficiency Anemia, DI for Urinary Tract Infection (UTI), Urinary Tract Infection Referrals: Cynthia Florez [employer] [Primary Care Provider] - 1-2 Weeks Prescriptions: Nitrofurantoin Monohydrate Mac [Macrobid] 100 mg PO BID 10 Days #20 capsule Home Medications: Ambulatory Orders Nitrofurantoin Monohydrate Mac [Macrobid] 100 mg PO BID 10 Days #20 capsule 05/26 Additional Instructions: follow up with primary Md 23 Dec 2017 for further evaluation of anemia
[2017-12-16 01:38] VITALS: O2SAT 98
[2017-12-16] MEDS ORDERED: NITROFURANTOIN MONOHYDRATE MAC 100 MG CAP PO ONE (01:46)
[2017-12-16 02:02] VITALS: BP 108/74; TEMP 98
== END 2017-12-16 02:02 | disposition home or self-care (01) ==
LOC: ER 21:58
DX: N39.0 Urinary tract infection, site not specified (principal); D50.9 Iron deficiency anemia, unspecified; R53.81 Other malaise

== ENCOUNTER 2018-02-01 16:45 | Emergency (ER) | payer SELFPAY ==
[2018-02-01] MEDS ORDERED: CHLORHEXIDINE GLUCONATE 4 % 15 ML UD TOP ONE (17:29)
--- NOTE | 2018-02-01 20:18 | ED.PDOC ---
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 NO HEAD COLLISION. STILL C/O LIVE, MILD NAUSEA THAT COMES AND GOES. Timing/Prior Episodes: single episode today Precipitating Factors: lightheadedness Context: standing Loss of Consciousness: no loss of consciousness Current Symptoms: headache, nausea Allergies/Adverse Reactions: Allergies Loratadine Allergy (Intermediate, Verified 10/31/17 19:38) Anaphylaxis Aripiprazole [From Abilify] Allergy (Verified 10/31/17 19:38) Sulfamethoxazole w/Trimethoprim [From Bactrim] Allergy (Verified 10/31/17 19:38) Home Medications: Ambulatory Orders Nitrofurantoin Monohydrate Mac [Macrobid] 100 mg PO BID 10 Days #20 capsule 05/26 Nitrofurantoin Monohydrate Mac [Macrobid] 100 mg PO BID #14 cap 02/01/18 Review of Systems - Review of Systems Constitutional: States: no symptoms reported. Denies: weakness EENTM: States: no symptoms reported. Denies: blurred vision Respiratory: States: no symptoms reported Cardiology: States: no symptoms reported Gastrointestinal/Abdominal: States: no symptoms reported Genitourinary: States: no symptoms reported Musculoskeletal: States: no symptoms reported Skin: States: no symptoms reported Neurological: States: headache - MILD, FRONTAL Endocrine: States: no symptoms reported Hematologic/Lymphatic: States: no symptoms reported All other Systems: Reviewed and Negative Past Medical History (General) - Patient Medical History Hx Seizures: No Hx Stroke: No Hx Dementia: No Hx Asthma: No Hx of COPD: No Hx Cardiac Disorders: No Hx Congestive Heart Failure: No Hx Pacemaker: No Hx Hypertension: No Hx Thyroid Disease: No Hx Diabetes: No Hx Gastroesophageal Reflux: No Hx Renal Disease: No Hx Cancer: No Hx of HIV: No Hx Hepatitis C: No Hx MRSA: No - Vaccination History Hx Tetanus, Diphtheria Vaccination: Yes Hx Influenza Vaccination: Yes - 2017 Hx Pneumococcal Vaccination: Yes - Social History Hx Tobacco Use: No Hx Chewing Tobacco Use: No Hx Alcohol Use: No Hx Substance Use: No Hx Substance Use Treatment: No Hx Depression: No Hx Physical Abuse: No Hx Emotional Abuse: No Hx Suspected Abuse: No - Female History Patient is a Female of Child Bearing Age (10 -59 yrs old): Yes Hx Last Menstrual Period: 12/07/17 Patient : No Expected Date of Delivery:: 06/04/15 Physical Exam - Physical Exam General Appearance: Alert, No apparent distress Eyes, Ears, Nose, Throat Exam: PERRL/EOMI, normal ENT inspection, TMs normal Neck: non-tender, full range of motion, supple Cardiovascular/Respiratory: regular rate, rhythm, no M/R/G, normal breath sounds , no respiratory distress Gastrointestinal/Abdominal: normal bowel sounds, non tender, soft Back Exam: normal inspection, no CVA tenderness Extremity: normal range of motion, normal inspection Mental Status: alert, oriented x 3 Coordination/Gait: normal gait Motor/Sensory: no motor deficit, no sensory deficit Skin Exam: normal color, warm/dry Lymphatic: no adenopathy Progress - Progress Progress: 02/01/18 20:38 EKG NSR. BMP WNL HCG NEG. CBC - HGB 9.2, LOW MCV AND MCHC = ANEMIA, MICROCYTIC, HYPOCHROMIC. F/U W/ PCP JOVITA FLOREZ FOR POSSIBLE IRON STUDIES TO HELP DET ETX AND ENSURE SX IMPROVING. UA = UTI. LEUK EST, WBC, BACT. RX MACROBID. WORK NOTE - OFF TOMORROW. START OTC IRON PILLS. Departure - Departure Clinical Impression: Near syncope, Hypochromic microcytic anemia, UTI (urinary tract infection), Bacteriuria, Headache, Nausea Disposition: Discharge to Home or Self Care Condition: Good Departure Forms: ED Discharge - Pt. Copy, Patient Portal Self Enrollment Instructions: DI for Syncope in Adults (Fainting) Diet: resume usual diet Activity: increase activity as tolerated Referrals: Cynthia Florez, OMAIRA [Primary Care Provider] - 1 Week Prescriptions: Nitrofurantoin Monohydrate Mac [Macrobid] 100 mg PO BID #14 cap Home Medications: Ambulatory Orders Nitrofurantoin Monohydrate Mac [Macrobid] 100 mg PO BID 10 Days #20 capsule 05/26 Nitrofurantoin Monohydrate Mac [Macrobid] 100 mg PO BID #14 cap 02/01/18 Additional Instructions: Please start an iron tablet twice per day.
[2018-02-01] MEDS ORDERED: NITROFURANTOIN MONO (ER DISP) 100 MG CAP PO ONE (20:36)
[2018-02-01 20:47] VITALS: BP 129/89; TEMP 97.9; O2SAT 100
== END 2018-02-01 20:47 | disposition home or self-care (01) ==
LOC: ER 16:45
DX: R55 Syncope and collapse (principal); D50.9 Iron deficiency anemia, unspecified; N39.0 Urinary tract infection, site not specified; R51 Headache; R11.0 Nausea; Z88.2 Allergy status to sulfonamides; Z88.8 Allergy status to other drugs, medicaments and biological substances